=== PATIENT | female | born 1975 | race Caucasian/White ===

== ENCOUNTER → 2019-04-02 | Outpatient (REF) | LOC: M LAB 12:07 | PROVIDERS: ATTEND Nurse Practitioner Adult Health | DX: Z00.00 Encounter for general adult medical examination without abnormal findings (principal) ==

== ENCOUNTER → 2019-12-30 | Outpatient (CLI) | payer OTHER | LOC: M LABSMTC 12:41 | PROVIDERS: ATTEND Family Medicine | DX: Z11.59 Encounter for screening for other viral diseases (principal); Z20.828 Contact with and (suspected) exposure to other viral communicable diseases ==

== ENCOUNTER → 2020-01-01 | Outpatient (CLI) | payer OTHER ==
--- NOTE | 2020-01-02 07:17 | REP ---
CHEST, TWO VIEWS: There is no evidence of acute infiltrate. No pleural effusion is seen. The heart is normal in size. The mediastinal silhouette is unremarkable. The visualized osseous structures are intact. IMPRESSION: No acute pulmonary disease. Electronically Signed by Yevgeniy Oliva MD 01/04/2020 11:55 A
== END ==
LOC: M LRY 14:56
PROVIDERS: ATTEND Physician Assistant
DX: R05 Cough (principal)

== ENCOUNTER → 2020-10-29 | Outpatient (CLI) | payer OTHER ==
[2020-10-29 16:20] LABS: BLOOD UREA NITROGEN 11 MG/DL (7-18); CALCIUM LEVEL 8.5 MG/DL (8.5-10.1); CARBON DIOXIDE LEVEL 23 MEQ/L (21-32); CHLORIDE LEVEL 112 MEQ/L (98-107); CHOLESTEROL LEVEL 201 MG/DL (<200); CREATININE FOR GFR 0.62 MG/DL (0.55-1.30); FREE T4 1.11 NG/DL (0.76-1.46); GLOMERULAR FILTRATION RATE > 60.0 (>58); GLUCOSE, FASTING 79 MG/DL (70-100); HDL CHOLESTEROL 60 MG/DL (>40); LDL CHOLESTEROL 125 MG/DL (<100); NON-HDL-C 141 MG/DL; SODIUM LEVEL 142 MEQ/L (136-145); THYROID STIMULATING HORMONE 0.602 uIU/ML (0.358-3.740); TRIGLYCERIDES LEVEL 81 MG/DL (<150); URIC ACID 2.6 MG/DL (2.6-6.0)
== END ==
LOC: M LAB 12:20
PROVIDERS: ATTEND Family Medicine
DX: R53.83 Other fatigue (principal); I10 Essential (primary) hypertension; R63.5 Abnormal weight gain

== ENCOUNTER → 2020-11-26 | Outpatient (CLI) | payer SELFPAY | LOC: M LABSMTC 08:19 | PROVIDERS: ATTEND Pediatrics | DX: Z11.52 Encounter for screening for COVID-19 (principal) ==

== ENCOUNTER → 2020-12-13 | Outpatient (REF) | payer OTHER ==
[2020-12-13 18:29] LABS: HEMATOCRIT 39.7 % (36.0-47.0); HEMOGLOBIN 13.2 g/dl (12.0-15.5); MEAN CORPUSCULAR HEMOGLOBIN 31.1 pg (27.0-33.0); MEAN CORPUSCULAR HGB CONC 33.2 g/dl (32.0-36.5); MEAN CORPUSCULAR VOLUME 93.6 fl (80.0-96.0); PLATELET COUNT, AUTOMATED 314 10^3/uL (150-450); RED BLOOD COUNT 4.24 10^6/uL (4.00-5.40); WHITE BLOOD COUNT 6.3 10^3/uL (4.0-10.0)
[2020-12-13 19:09] LABS: ALBUMIN 3.7 GM/DL (3.2-5.2); ALT/SGPT 32 U/L (12-78); BILIRUBIN,TOTAL 0.3 MG/DL (0.2-1.0); BLOOD UREA NITROGEN 9 MG/DL (7-18); CALCIUM LEVEL 9.1 MG/DL (8.5-10.1); CARBON DIOXIDE LEVEL 29 MEQ/L (21-32); CHLORIDE LEVEL 107 MEQ/L (98-107); CREATININE FOR GFR 0.66 MG/DL (0.55-1.30); FREE T4 1.01 NG/DL (0.76-1.46); GLOMERULAR FILTRATION RATE > 60.0 (>58); GLUCOSE, FASTING 90 MG/DL (70-100); POTASSIUM SERUM 4.1 MEQ/L (3.5-5.1); RHEUMATOID FACTOR QUANT < 10.0 IU/ML (<15.0); SODIUM LEVEL 141 MEQ/L (136-145); TOTAL PROTEIN 6.5 GM/DL (6.4-8.2)
[2020-12-15 19:11] LABS: ANA (HEP2) Negative (.)
== END ==
LOC: M SFHCADAM 14:21
PROVIDERS: ATTEND Family Medicine
DX: E04.1 Nontoxic single thyroid nodule (principal); I10 Essential (primary) hypertension; L20.89 Other atopic dermatitis; L30.1 Dyshidrosis [pompholyx]

== ENCOUNTER → 2021-01-05 | Outpatient (CLI) | payer OTHER ==
--- NOTE | 2021-01-05 13:27 | REPMRS ---
Patient History The patient states she has not had a clinical breast exam in over a year. Family history of ovarian cancer at age 50 in maternal grandmother. No Hormone Replacement Therapy Patient states no breast complaints today. Patient has signed MRS History Sheet. Digital Woman Screen Mammo: January 05, 2021 - Exam #: [id number] Bilateral CC and MLO view(s) were taken. Technologist: Jayleen Murray, Technologist Prior study comparison: February 22, 2017, bilateral digital mammo screening bilat, performed at [facility]. FINDINGS: There are scattered fibroglandular densities. Screening. Digital screening (2D) mammography was performed bilaterally in the CC and MLO projections. Additionally, breast tomosynthesis (3D mammography) was performed bilaterally in the CC and MLO projections. Todays exam was compared to the prior exams(s). By history, the patient has no complaints of a palpable breast abnormality or other significant breast complaints. The breasts are unchanged in size and shape. There are no aiden-soft tissue densities or spiculated masses. There is no internal architectural distortion. There are no suspicious aiden-calcific clusters. Skin thickening or nipple retraction is not present. IMPRESSION: BI-RADS Category 2- Benign Findings(s). There is no evidence of malignant alteration of the breasts. Followup examination recommended in one year. This mammogram was read with the assistance of Nano[employer],an FDA approved computer aided detection system for mammography. Negative x-ray reports should not delay surgical consultation if a dominant or clinically suspicious mass is present. The lifetime Tyrer-Cuzick score is 9.9 % Not all breast cancers can be identified by mammography. Therefore, we recommend that you continue to perform regular breast self-examination and physical examination and then promptly contact your physician of any concerns or changes. The Volpara volumetric breast density category is B, there are scattered areas of fibroglandular density. Adenosis and dense breasts may obscure an underlying neoplasm. Assessment: BI-RADS/ACR category 2 mammogram. Benign Findings. Recommendation Routine screening mammogram of both breasts in 1 year. Electronically Signed By: Castillo Underwood DO 01/05/21 [id number]
--- NOTE | 2021-01-05 18:27 | REP ---
INDICATION: E04.1 THYROID NODULE. COMPARISON: None. TECHNIQUE: High-resolution bilateral thyroid sonography. FINDINGS: The thyroid isthmus is 0.4 cm in thickness. Right lobe dimensions by ultrasound of 5.8 x 2.0 x 1.8 cm. Left lobe measures 5.9 x 2.0 x 2.0 cm. There is a 0.4 cm shadowing calculus at the mid gland on the left. No soft tissue nodule or cyst is seen. IMPRESSION: Focal dystrophic calcification at mid gland level on the left. Mildly enlarged thyroid. No focal nodule or cyst. <Electronically signed by Jack Eaton > 01/05/21 [id number]
== END ==
LOC: M WHC 10:52
PROVIDERS: ATTEND Family Medicine
DX: Z12.31 Encounter for screening mammogram for malignant neoplasm of breast (principal); E04.1 Nontoxic single thyroid nodule

== ENCOUNTER → 2021-03-04 | Outpatient (CLI) | payer OTHER ==
[2021-03-04 12:52] LABS: RHEUMATOID FACTOR QUANT < 10.0 IU/ML (<15.0); TOTAL PROTEIN 6.1 GM/DL (6.4-8.2)
[2021-03-06 11:24] LABS: ALBUMIN 3.78 GM/DL (3.29-5.55); ALPHA-1-GLOBULIN % 3.1 % (2.9-4.9); ALPHA-1-GLOBULINS 0.19 GM/DL (0.17-0.41); ALPHA-2-GLOBULINS 0.58 GM/DL (0.42-0.99); ALPHA-2-GLOBULINS % 9.5 % (7.1-11.8); BETA-1-GLOBULINS 0.37 GM/DL (0.28-0.60); BETA-2-GLOBULINS 0.37 GM/DL (0.19-0.55); GAMMA GLOBULIN % 13.4 % (11.1-18.8); GAMMA GLOBULINS 0.82 GM/DL (0.65-1.58)
[2021-03-06 11:33] LABS: FOLATE 13.3 NG/ML; TOTAL 25(OH) VITAMIN D 21.8 NG/ML (30.0-100.0); VITAMIN B12 LEVEL 401 PG/ML
== END ==
LOC: M LAB 11:27
PROVIDERS: ATTEND Psychiatry & Neurology Neurology
DX: R53.1 Weakness (principal); G62.9 Polyneuropathy, unspecified

== ENCOUNTER 2022-01-13 20:40 | Emergency (ER) | payer BC ==
[~2022-01-13] VITALS: Ht 157.5 cm; Wt 98.6 kg
[~2022-01-13 20:40] MED LIST: DUPI300P; EPIN0.3I11; EXCETAB32 PO; MUCI600T31 PO; VENTAER INH
[2022-01-13 20:41] VITALS: BP 141/83
[2022-01-13] MEDS ORDERED: DOXY100C3 (20:50)
== END 2022-01-13 22:18 | disposition left against medical advice (07) ==
LOC: M ED 20:40
DX: Z53.21 Procedure and treatment not carried out due to patient leaving prior to being seen by health care provider (principal)

== ENCOUNTER 2022-01-16 13:03 | Outpatient (CLI) | payer BC ==
[~2022-01-16] VITALS: Ht 157.5 cm; Wt 98.4 kg
[~2022-01-16 13:03] MED LIST changes: +ALBUTEROL 90 MCG/ACT 8GM HFA INHALER INH PRN; +ALBUTEROL SULFATE 2.5 MG/0.5 ML INH NEB SOLN INH PRN; +DOXY100C3; +EPINEPHrine INJ 1 MG/ML 1ML AMP IM PRN; +diphenhydrAMINE 50MG/ML VIAL (J1200) IV PRN; +methylPREDNISolone 125MG 2ML VIAL IV PRN
[2022-01-16] MEDS ORDERED: NS 1,000 ML IV SCH (13:30)
[2022-01-16 14:00] VITALS: BP 138/86
[2022-01-16] MEDS ORDERED: methylPREDNISolone 40MG 1ML VIAL IV ONE (14:00)
[2022-01-16] MEDS ORDERED: diphenhydrAMINE 50MG/ML VIAL (J1200) IV ONE (14:00)
[2022-01-16] MEDS ORDERED: BEBTELOVIMAB 175MG 2ML VIAL (EUA) IV ONE (14:30)
[2022-01-16 14:35] VITALS: BP 131/75
[2022-01-16 15:09] VITALS: BP 128/68
== END 2022-01-16 15:00 ==
LOC: M OPCLI4PR 13:03 → M OPCLI4 13:03 → M 4MAIN 13:08 → M OPCLI4 15:00
PROVIDERS: ATTEND Family Medicine
DX: U07.1 COVID-19 (principal); Z88.8 Allergy status to other drugs, medicaments and biological substances
CPT/HCPCS: 96367; J2920; M0222

== ENCOUNTER → 2022-04-28 | Outpatient (CLI) | payer BC ==
[~2022-04-28] MED LIST changes: -ALBUTEROL 90 MCG/ACT 8GM HFA INHALER INH PRN; -ALBUTEROL SULFATE 2.5 MG/0.5 ML INH NEB SOLN INH PRN; -EPINEPHrine INJ 1 MG/ML 1ML AMP IM PRN; -diphenhydrAMINE 50MG/ML VIAL (J1200) IV PRN; -methylPREDNISolone 125MG 2ML VIAL IV PRN
[2022-04-28 11:18] LABS: HEMATOCRIT 38.7 % (36.0-47.0); HEMOGLOBIN 12.9 g/dl (12.0-15.5); MEAN CORPUSCULAR HEMOGLOBIN 30.7 pg (27.0-33.0); MEAN CORPUSCULAR HGB CONC 33.3 g/dl (32.0-36.5); MEAN CORPUSCULAR VOLUME 92.1 fl (80.0-96.0); PLATELET COUNT, AUTOMATED 223 10^3/uL (150-450); WHITE BLOOD COUNT 5.1 10^3/uL (4.0-10.0)
[2022-04-28 12:02] LABS: ALBUMIN 3.6 GM/DL (3.2-5.2); ALT/SGPT 23 U/L (12-78); BILIRUBIN,TOTAL 0.5 MG/DL (0.2-1.0); BLOOD UREA NITROGEN 10 MG/DL (7-18); CALCIUM LEVEL 8.6 MG/DL (8.5-10.1); CARBON DIOXIDE LEVEL 26 MEQ/L (21-32); CHLORIDE LEVEL 109 MEQ/L (98-107); CHOLESTEROL LEVEL 182 MG/DL (<200); CREATININE FOR GFR 0.68 MG/DL (0.55-1.30); FREE T4 0.99 NG/DL (0.76-1.46); GLOMERULAR FILTRATION RATE > 60.0 (>58); GLUCOSE, FASTING 86 MG/DL (70-100); HDL CHOLESTEROL 65 MG/DL (>40); LDL CHOLESTEROL 103 MG/DL (<100); NON-HDL-C 117 MG/DL; POTASSIUM SERUM 3.9 MEQ/L (3.5-5.1); SODIUM LEVEL 139 MEQ/L (136-145); THYROID STIMULATING HORMONE 0.934 uIU/ML (0.358-3.740); TOTAL PROTEIN 6.1 GM/DL (6.4-8.2); TRIGLYCERIDES LEVEL 69 MG/DL (<150)
== END ==
LOC: M LAB 10:31
PROVIDERS: ATTEND Family Medicine
DX: E78.5 Hyperlipidemia, unspecified (principal); E66.01 Morbid (severe) obesity due to excess calories; Z79.899 Other long term (current) drug therapy

== ENCOUNTER → 2022-10-22 | Outpatient (CLI) | payer BC | LOC: M RAD 14:46 | PROVIDERS: ATTEND Family Medicine | DX: M25.552 Pain in left hip (principal); N20.0 Calculus of kidney ==

== ENCOUNTER → 2022-11-23 | Outpatient (CLI) | payer BC | LOC: M WHC 16:07 | PROVIDERS: ATTEND Family Medicine | DX: Z12.31 Encounter for screening mammogram for malignant neoplasm of breast (principal) ==

== ENCOUNTER → 2023-01-26 | Outpatient (CLI) | payer BC ==
[2023-01-26 12:38] LABS: HEMOGLOBIN 13.6 g/dl (12.0-15.5); MEAN CORPUSCULAR HEMOGLOBIN 30.8 pg (27.0-33.0); MEAN CORPUSCULAR HGB CONC 33.2 g/dl (32.0-36.5); PLATELET COUNT, AUTOMATED 254 10^3/uL (150-450); RED BLOOD COUNT 4.41 10^6/uL (4.00-5.40); WHITE BLOOD COUNT 4.5 10^3/uL (4.0-10.0)
[2023-01-26 13:06] LABS: ALBUMIN 3.7 G/DL (3.2-5.2); ALKALINE PHOSPHATASE 77 U/L (46-116); ALT/SGPT 33 U/L (7.0-40); AST/SGOT 25 U/L (<34); BILIRUBIN,TOTAL 0.4 MG/DL (0.3-1.2); BLOOD UREA NITROGEN 13 MG/DL (9-23); CALCIUM LEVEL 8.6 MG/DL (8.5-10.1); CARBON DIOXIDE LEVEL 27 MMOL/L (20-31); CHLORIDE LEVEL 108 MMOL/L (98-107); CHOLESTEROL LEVEL 161 MG/DL (<200); CHOLESTEROL RISK RATIO 2.94 (<5); CREATININE FOR GFR 0.75 MG/DL (0.55-1.30); GLOMERULAR FILTRATION RATE > 60.0 (>58); GLUCOSE, FASTING 79 MG/DL (60-100); HDL CHOLESTEROL 54.6 MG/DL (>40); NON-HDL-C 106.4 MG/DL; POTASSIUM SERUM 4.1 MMOL/L (3.5-5.1); RHEUMATOID FACTOR QUANT 5.2 IU/ML (<14); SODIUM LEVEL 142 MMOL/L (136-145); TOTAL PROTEIN 6.3 G/DL (5.7-8.2); TRIGLYCERIDES LEVEL 52 MG/DL (<150)
[2023-01-26 13:07] LABS: THYROID STIMULATING HORMONE 1.995 uIU/ML (0.55-4.78)
[2023-01-26 13:08] LABS: FREE T4 1.19 NG/DL (0.89-1.76)
[2023-01-26 13:23] LABS: HEMOGLOBIN A1c 4.8 % (4.0-6.0)
[2023-01-30 20:07] LABS: ANA (HEP2) Negative (.)
== END ==
LOC: M LAB 11:12
PROVIDERS: ATTEND Family Medicine
DX: I11.9 Hypertensive heart disease without heart failure (principal); E78.5 Hyperlipidemia, unspecified; E66.01 Morbid (severe) obesity due to excess calories; M25.60 Stiffness of unspecified joint, not elsewhere classified; Z87.892 Personal history of anaphylaxis; Z79.899 Other long term (current) drug therapy

== ENCOUNTER → 2023-07-22 | Outpatient (CLI) | payer BC | LOC: M WHC 08:43 | PROVIDERS: ATTEND Nurse Practitioner Family | DX: Z12.31 Encounter for screening mammogram for malignant neoplasm of breast (principal) ==

== ENCOUNTER → 2023-09-05 | Outpatient (REF) | payer BC | LOC: M LAB REF 16:40 | PROVIDERS: ATTEND Nurse Practitioner Family | DX: J02.9 Acute pharyngitis, unspecified (principal); J06.9 Acute upper respiratory infection, unspecified ==

== ENCOUNTER → 2024-01-02 | Outpatient (REF) | payer BC ==
[2024-01-02 18:17] LABS: C REACTIVE PROTEIN QUANTITATIV < 0.40 MG/DL (<1.0)
[2024-01-02 18:19] LABS: ALBUMIN 3.6 G/DL (3.2-5.2); ALKALINE PHOSPHATASE 51 U/L (46-116); ALT/SGPT 32 U/L (7.0-40); AST/SGOT 21 U/L (<34); BILIRUBIN,TOTAL 0.2 MG/DL (0.3-1.2); BLOOD UREA NITROGEN 24 MG/DL (9-23); CALCIUM LEVEL 8.6 MG/DL (8.5-10.1); CARBON DIOXIDE LEVEL 28 MMOL/L (20-31); CHLORIDE LEVEL 105 MMOL/L (98-107); CHOLESTEROL LEVEL 182 MG/DL (<200); CHOLESTEROL RISK RATIO 2.62 (<5); CREATININE FOR GFR 0.55 MG/DL (0.55-1.30); GLOMERULAR FILTRATION RATE > 60.0 (>58); GLUCOSE, FASTING 75 MG/DL (60-100); HDL CHOLESTEROL 69.3 MG/DL (>40); LDL CHOLESTEROL 93.7 MG/DL (<100); NON-HDL-C 112.7 MG/DL; POTASSIUM SERUM 4.2 MMOL/L (3.5-5.1); SODIUM LEVEL 140 MMOL/L (136-145); TOTAL PROTEIN 6.2 G/DL (5.7-8.2); TRIGLYCERIDES LEVEL 95 MG/DL (<150)
[2024-01-02 18:21] LABS: HEMATOCRIT 39.9 % (36.0-47.0); MEAN CORPUSCULAR HEMOGLOBIN 30.4 pg (27.0-33.0); MEAN CORPUSCULAR HGB CONC 32.6 g/dl (32.0-36.5); MEAN CORPUSCULAR VOLUME 93.4 fl (80.0-96.0); PLATELET COUNT, AUTOMATED 258 10^3/uL (150-450); RED BLOOD COUNT 4.27 10^6/uL (4.00-5.40); WHITE BLOOD COUNT 7.4 10^3/uL (4.0-10.0)
[2024-01-02 18:23] LABS: THYROID STIMULATING HORMONE 1.532 uIU/ML (0.55-4.78)
[2024-01-02 18:43] LABS: HEMOGLOBIN A1c 4.7 % (4.0-6.0)
[2024-01-02 18:47] LABS: CREATININE, URINE 27.3 MG/DL
[2024-01-02 18:48] LABS: MALB URINE SIEMENS < 3.0 MG/L; MAU/CREAT RATIO 10.9 MCG/MG (0.0-30.0)
== END ==
LOC: M SFHCADAM 11:37
PROVIDERS: ATTEND Family Medicine
DX: M47.816 Spondylosis without myelopathy or radiculopathy, lumbar region (principal); E04.1 Nontoxic single thyroid nodule; E78.5 Hyperlipidemia, unspecified; Z13.1 Encounter for screening for diabetes mellitus; I11.9 Hypertensive heart disease without heart failure

== ENCOUNTER → 2024-02-14 | Outpatient (CLI) | payer BC | LOC: M RAD 14:30 | PROVIDERS: ATTEND Family Medicine | DX: E04.2 Nontoxic multinodular goiter (principal) ==

== ENCOUNTER 2024-02-28 13:04 | Outpatient (RCR) | payer BC | END 2024-03-01 | LOC: M PT 13:04 | PROVIDERS: ATTEND Family Medicine | DX: N36.41 Hypermobility of urethra (principal) ==

== ENCOUNTER 2024-03-26 15:00 | Outpatient (RCR) | payer BC | END 2024-04-01 | LOC: M PT 15:00 | PROVIDERS: ATTEND Family Medicine | DX: N36.41 Hypermobility of urethra (principal) ==

== ENCOUNTER 2024-04-03 14:12 | Outpatient (RCR) | payer BC | END 2024-05-02 | LOC: M PT 14:12 | PROVIDERS: ATTEND Family Medicine | DX: N36.41 Hypermobility of urethra (principal) ==

== ENCOUNTER → 2024-04-08 | Outpatient (REF) | payer BC ==
[2024-04-08 19:22] LABS: LIPASE 28 U/L (12-53)
[2024-04-08 19:23] LABS: AMYLASE 42 U/L (30-118)
[2024-04-08 19:24] LABS: ALBUMIN 3.6 G/DL (3.2-5.2); ALKALINE PHOSPHATASE 58 U/L (46-116); ALT/SGPT 28 U/L (7.0-40); AST/SGOT 16 U/L (<34); BILIRUBIN,TOTAL 0.4 MG/DL (0.3-1.2); BLOOD UREA NITROGEN 16 MG/DL (9-23); CALCIUM LEVEL 9.2 MG/DL (8.5-10.1); CARBON DIOXIDE LEVEL 28 MMOL/L (20-31); CHLORIDE LEVEL 106 MMOL/L (98-107); CREATININE FOR GFR 0.65 MG/DL (0.55-1.30); GLOMERULAR FILTRATION RATE > 60.0 (>51); GLUCOSE, FASTING 98 MG/DL (60-100); POTASSIUM SERUM 4.1 MMOL/L (3.5-5.1); SODIUM LEVEL 138 MMOL/L (136-145); TOTAL PROTEIN 6.5 G/DL (5.7-8.2)
[2024-04-08 19:28] LABS: BASO % 0.3 % (0.0-1.0); EOS # 0.1 10^3/uL (0.0-0.5); EOS % 0.8 % (0.0-3.0); HEMATOCRIT 38.4 % (36.0-47.0); HEMOGLOBIN 12.9 g/dl (12.0-15.5); LYMPH # 2.1 10^3/uL (1.5-5.0); LYMPH % 35.9 % (24.0-44.0); MEAN CORPUSCULAR HEMOGLOBIN 30.9 pg (27.0-33.0); MEAN CORPUSCULAR HGB CONC 33.6 g/dl (32.0-36.5); MEAN CORPUSCULAR VOLUME 91.9 fl (80.0-96.0); MONO # 0.7 10^3/uL (0.0-0.8); MONO % 11.4 % (2.0-8.0); NEUTROPHILS # 3.1 10^3/uL (1.5-8.5); NEUTROPHILS % 51.4 % (36.0-66.0); PLATELET COUNT, AUTOMATED 282 10^3/uL (150-450); RED BLOOD COUNT 4.18 10^6/uL (4.00-5.40); WHITE BLOOD COUNT 5.9 10^3/uL (4.0-10.0)
== END ==
LOC: M SFHCADAM 14:13
PROVIDERS: ATTEND Physician Assistant
DX: R10.11 Right upper quadrant pain (principal)

== ENCOUNTER → 2024-04-13 | Outpatient (CLI) | payer BC | LOC: M WHC 06:52 | PROVIDERS: ATTEND Physician Assistant | DX: R10.11 Right upper quadrant pain (principal); K82.4 Cholesterolosis of gallbladder ==

== ENCOUNTER 2024-07-03 07:38 | Day surgery (SDC) | payer BC ==
[~2024-07-03] VITALS: Ht 162.6 cm; Wt 95.7 kg
[~2024-07-03 07:38] MED LIST changes: -EPIN0.3I11; +EPIN0.3I11 IM; +NS 250 ML IV ONE
[2024-07-03] MEDS ORDERED: propofoL 200 MG/20 ML VIAL As Ordered ONE (08:47)
[2024-07-03] MEDS ORDERED: LIDOCAINE 2% 100MG/5ML SDV (FOR ANES.) As Ordered ONE (08:47)
[2024-07-03 09:07] VITALS: TEMP 98
[2024-07-03 09:24] VITALS: BP 119/59; O2SAT 98
== END 2024-07-03 09:30 | disposition home or self-care (01) ==
LOC: M OPP 07:38
PROVIDERS: ATTEND Surgery
DX: K29.71 Gastritis, unspecified, with bleeding (principal); K64.0 First degree hemorrhoids; R10.13 Epigastric pain; J45.909 Unspecified asthma, uncomplicated; Z79.899 Other long term (current) drug therapy; L30.9 Dermatitis, unspecified; Z88.8 Allergy status to other drugs, medicaments and biological substances; Z91.048 Other nonmedicinal substance allergy status; Z87.442 Personal history of urinary calculi

== ENCOUNTER → 2024-11-03 | Outpatient (CLI) | payer BC ==
[~2024-11-03] MED LIST changes: -NS 250 ML IV ONE
[2024-11-06 07:37] LABS: THRYOGLOBULIN ANTIBODIES (ATA) < 1 IU/mL (< or = 1); THYROGLOBULIN QUANTITATIVE 50.6 ng/mL (2.8-40.9)
== END ==
LOC: M LAB 16:12
PROVIDERS: ATTEND Internal Medicine Endocrinology, Diabetes & Metabolism
DX: E04.2 Nontoxic multinodular goiter (principal)

== ENCOUNTER → 2025-01-08 | Outpatient (REF) | payer BC | LOC: M SFHCADAM 16:23 | PROVIDERS: ATTEND Family Medicine | DX: M25.60 Stiffness of unspecified joint, not elsewhere classified (principal); E04.1 Nontoxic single thyroid nodule; R53.83 Other fatigue ==

== ENCOUNTER → 2025-01-16 | Outpatient (CLI) | payer BC ==
[2025-01-16 12:04] LABS: HEMATOCRIT 37.5 % (36.0-47.0); HEMOGLOBIN 12.4 g/dl (12.0-15.5); MEAN CORPUSCULAR HEMOGLOBIN 30.8 pg (27.0-33.0); MEAN CORPUSCULAR HGB CONC 33.1 g/dl (32.0-36.5); MEAN CORPUSCULAR VOLUME 93.1 fl (80.0-96.0); PLATELET COUNT, AUTOMATED 236 10^3/uL (150-450); RED BLOOD COUNT 4.03 10^6/uL (4.00-5.40); WHITE BLOOD COUNT 5.9 10^3/uL (4.0-10.0)
[2025-01-16 12:40] LABS: C REACTIVE PROTEIN QUANTITATIV 0.58 MG/DL (<1.0)
[2025-01-16 12:41] LABS: ALBUMIN 3.2 G/DL (3.2-5.2); ALKALINE PHOSPHATASE 64 U/L (35-104); ALT/SGPT 26 U/L (7.0-40); AST/SGOT 18 U/L (<34); BILIRUBIN,TOTAL 0.4 MG/DL (0.3-1.2); BLOOD UREA NITROGEN 14 MG/DL (9-23); CALCIUM LEVEL 8.7 MG/DL (8.5-10.1); CARBON DIOXIDE LEVEL 28 MMOL/L (20-31); CHLORIDE LEVEL 106 MMOL/L (98-107); FREE T4 0.98 NG/DL (0.89-1.76); GLOMERULAR FILTRATION RATE > 90.0 (>51); GLUCOSE, FASTING 84 MG/DL (60-100); POTASSIUM SERUM 3.8 MMOL/L (3.5-5.1); RHEUMATOID FACTOR QUANT < 3.5 IU/ML (<14); SODIUM LEVEL 142 MMOL/L (136-145); TOTAL PROTEIN 5.8 G/DL (5.7-8.2)
[2025-01-16 12:42] LABS: FOLATE 12.37 NG/ML (>5.4); THYROID STIMULATING HORMONE 2.465 uIU/ML (0.55-4.78)
[2025-01-16 12:43] LABS: VITAMIN B12 LEVEL 556 PG/ML (211-911)
[2025-01-19 14:30] LABS: ANA SCREEN, IFA NEGATIVE (NEGATIVE)
== END ==
LOC: M LAB 10:59
PROVIDERS: ATTEND Family Medicine
DX: M25.60 Stiffness of unspecified joint, not elsewhere classified (principal); R53.83 Other fatigue; E04.1 Nontoxic single thyroid nodule